=== PATIENT | female | born 1990 | race Hispanic/Latino ===

== ENCOUNTER 2019-11-20 13:15 | Emergency (ER) | payer SELFPAY ==
[~2019-11-20] VITALS: Ht 165.1 cm; Wt 67.1 kg
--- OUTSIDE RECORDS SUMMARY | 2019-11-20 13:17 | XMS REPORT ---
[facility] Address Unknown Phone Unavailable Care Team Providers Care Youtuber Name Role Phone Unavailable Unavailable Payers Payer Name Policy Type Policy Number Effective Date Expiration Date Problems This patient has no known problems. Allergies, Adverse Reactions, Alerts Allergy Name Allergy Type Status Severity Reaction(s) Onset Date Inactive Date Treating Clinician Comments No Known Allergies DA Active U 2017-07-17 00:00:00 Medications This patient has no known medications. Results Test Description Test Time Test Comments Text Results Atomic Results Result Comments URINALYSIS COMPLETE 2019-01-16 20:28:00 UA COLOR (test code=COLU) YELLOW YELLOW UA APPEARANCE (test code=APPU) CLEAR CLEAR UA GLUCOSE DIPSTICK (test code=DGLUU) norm mg/dL NEGATIVE UA BILIRUBIN DIPSTICK (test code=BILU) NEGATIVE mg/dL NEGATIVE UA KETONE DIPSTICK (test code=KETU) neg mg/dL NEGATIVE UA SPECIFIC GRAVITY (test code=SGU) 1.025 1.001-1.035 UA BLOOD DIPSTICK (test code=CHENG) 10 (Trace) Nigel/uL NEGATIVE UA PH DIPSTICK (test code=ROSE) 5.0 5.0-8.0 UA PROTEIN DIPSTICK (test code=PROU) neg mg/dL Neg-15 UA UROBILINIOGEN DIPSTICK (test code=URO) norm mg/dL 0.0-0.2 UA NITRITE DIPSTICK (test code=NATHAN) NEGATIVE NEGATIVE UA LEUKOCYTE ESTERASE DIPSTICK (test code=LEUU) 100/uL (2+) uL NEGATIVE UA WBC (test code=WBCU) 6-10 per HPF 0-5 IN SOME URINARY TRACT INFECTIONS THERE MAY NOT BE ENOUGHWBCs IN THE URINE TO TRIGGER AN AUTOMATIC (REFLEX) URINECULTURE. A SEPERATE ORDER FOR URINE CULTURE IS RECOMMENDEDIF THERE IS STRONG SUPPORT FOR A URINARY TRACT INFECTIONCLINICALLY. UA RBC (test code=RBCU) 0-3 per HPF 0-5 UA EPITHELIAL CELLS (test code=EPIU) Few (2-5/hpf) per HPF Few UA BACTERIA (test code=BACU) FEW per HPF NONE Urine Source? Clean CatchUR HCG [id number] 20:28:00* Test Item Value Reference Range Comments UR HCG QUAL (test code=HCGQLU) NEGATIVE This HCGQL test is NOT applicable for MALE patients.Check with nurse about probable order error.If Tumor Marker Test needed, nurse should order test "HCGTU"(Test #550.96625) Urine Source? Clean Catch
[2019-11-20] MEDS ORDERED: TAMIFLU75 MG PO (14:31)
[2019-11-20 14:42] VITALS: BP 126/66
== END 2019-11-20 14:42 | disposition home or self-care (01) ==
LOC: FSED 13:15
DX: J10.1 Influenza due to other identified influenza virus with other respiratory manifestations (principal); H69.92 Unspecified Eustachian tube disorder, left ear; J45.909 Unspecified asthma, uncomplicated
CPT/HCPCS: 87400; 99283

== ENCOUNTER 2020-09-13 19:52 | Emergency (ER) | payer SELFPAY ==
[~2020-09-13] VITALS: Ht 165.1 cm; Wt 67.1 kg
[~2020-09-13 19:52] MED LIST: TAMIFLU75 MG PO
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
[2020-09-13] MEDS ORDERED: IBUPROFEN 100 MG/5 ML SUSP PO ONE (21:00)
--- NOTE | 2020-09-13 21:33 | Diagnostic Imaging Report ---
X-ray 3 views of the foot. HISTORY: Pain. COMPARISON: None available. FINDINGS: Bones: No acute displaced fracture. Osseous alignment is within normal limits. Joints: The joint spaces are well-maintained. Soft tissues: The soft tissues appear unremarkable. IMPRESSION: No acute radiographic abnormality. Signed by: Pema Victor MD on 09/13/2020 9:30 PM
[2020-09-13] MEDS ORDERED: IBUPROFEN 600 MG TAB ONE (21:42)
--- OUTSIDE RECORDS SUMMARY | 2020-09-13 21:43 | XMS REPORT | Continuity of Care Document ---
Author Author [facility] Organization [facility] Address [address] [place] [address] Phone Unavailable Care Team Providers Care Sign Board Erector Name Role Phone NO, PCP PCP Unavailable Edward RIVAS Attphydanielle Unavailable Payers Payer Name Policy Type Policy Number Effective Date Expiration Date S ource Problems This patient has no known problems. Allergies, Adverse Reactions, Alerts Allergy Name Allergy Type Status Severity Reaction(s) Onset Date Inacti ve Date Treating Clinician Comments Source No Known Allergies DA Active U 2017-07-17 00:00:00 [facility] Medications Ordered Medication Name Filled Medication Name Start Date Stop Da te Current Medication? Ordering Clinician Indication Dosage Frequency Signature (SIG) Comments Components Source Oseltamivir Phosphate (Tamiflu) 75 Mg Cap Oseltamivir Phosphate (Tamiflu) 75 Mg Cap 2019-11-20 00:00:00 Yes Teresita Rivas Md 1 Twice A Day for Flu [facility] Procedures This patient has no known procedures. Encounters Start Date/Time End Date/Time Encounter Type Admission Type [facility] Care Department Encounter ID Source 2019-11-20 13:15:00 2019-11-20 14:42:00 Departed Emergency Room [facility] [id number] [facility] Results Test Description Test Time Test Comments Results Result Comments Source FOOT 3 VIEW RT - HOPD 2020-09-13 21:29:00 [facility] ANTON[facility]TA MARSH : 1990 Sex: F [facility] [address] [address] Patient Name: ANTONIETTA MARSH MR #: [id number] : 1990 Age/Sex: 29/F Req #: [id number] Adm Physician: Ordered by: TERESITA RIVAS MD Report #: [id number] Location: [facility] Room/Bed: Procedure: [id number] HOPD/FOOT 3 VIEW RT - HOPD Exam Date: 09/13/20 Exam Time: 2101 REPORT STATUS: Signed X-ray 3 views of the foot. HISTORY: Pain. COMPARISON: None available. FINDINGS: Bones: No acute displaced fracture. Osseous alignment is within normal limits. Joints: The joint spaces are well-maintained. Soft tissues: The soft tissues appear unremarkable. IMPRESSION: No acute radiographic abnormality. Signed by: Hoda Springer MD on 09/13/2020 9:30 PM Dictated By: HODA SPRINGER MD 29 Transcribed By: VIV on 09/13/202129 COPY TO: TERESITA RIVAS MD URINALYSIS COMPLETE 2019-01-16 20:28:00 Test Item UA COLOR (test code = COLU) YELLOW YELLOW UA APPEARANCE (test code = APPU) CLEAR CLEAR UA GLUCOSE DIPSTICK (test code = DGLUU) norm mg/dL NEGATIVE UA BILIRUBIN DIPSTICK (test code = BILU) NEGATIVE mg/dL NEGATIVE UA KETONE DIPSTICK (test code = KETU) neg mg/dL NEGATIVE UA SPECIFIC GRAVITY (test code = SGU) 1.025 1.001-1.035 UA BLOOD DIPSTICK (test code = CHENG) 10 (Trace) Nigel/uL NEGATIVE A UA PH DIPSTICK (test code = ROSE) 5.0 5.0-8.0 UA PROTEIN DIPSTICK (test code = PROU) neg mg/dL Neg-15 UA UROBILINIOGEN DIPSTICK (test code = URO) norm mg/dL 0.0-0.2 UA NITRITE DIPSTICK (test code = NATHAN) NEGATIVE NEGATIVE UA LEUKOCYTE ESTERASE DIPSTICK (test code = LEUU) 100/uL (2+) uL NE GATIVE A UA WBC (test code = WBCU) 6-10 per HPF 0-5 IN SOME URINARY TRACT INFECTIONS THERE MAY NOT BE ENOUGHWBCs IN THE URINE TO TRIGGER AN AUTOMATIC (REFLEX) URINECULTURE. A SEPERATE ORDER FOR URINE CULTURE IS RECOMMENDEDIF THERE IS STRONG SUPPORT FOR A URINARY TRACT INFECTIONCLINICALLY. UA RBC (test code = RBCU) 0-3 per HPF 0-5 UA EPITHELIAL CELLS (test code = EPIU) Few (2-5/hpf) per HPF Few UA BACTERIA (test code = BACU) FEW per HPF NONE Urine Source? Clean CatchUR HCG [id number] 20:28:00* Test Item Value Reference Range Interpretation Comments UR HCG QUAL (test code = HCGQLU) NEGATIVE This HCGQL test is NOT applicable for MALE patients.Check with nurse about probable order error.If Tumor Marker Test needed, nurse should order test "HCGTU"(Test #550.58111) Urine Source? Clean Catch
[2020-09-13] MEDS ORDERED: IBUPROFEN400 MG PO (22:04)
[2020-09-13] MEDS ORDERED: CYCLOBENZAPRINE10 MG PO (22:08)
[2020-09-13] MEDS ORDERED: TYLENOL # 31 EA PO (22:09)
== END 2020-09-13 22:30 | disposition home or self-care (01) ==
LOC: FSED 20:15
DX: S90.31XA Contusion of right foot, initial encounter (principal); S80.01XA Contusion of right knee, initial encounter; S13.4XXA Sprain of ligaments of cervical spine, initial encounter; V43.52XA Car driver injured in collision with other type car in traffic accident, initial encounter; Y92.488 Other paved roadways as the place of occurrence of the external cause; J45.909 Unspecified asthma, uncomplicated
CPT/HCPCS: 99283

== ENCOUNTER 2021-01-08 15:40 | Emergency (ER) | payer SELFPAY ==
[~2021-01-08] VITALS: Ht 165.1 cm; Wt 67.1 kg
[~2021-01-08 15:40] MED LIST changes: +CYCLOBENZAPRINE10 MG PO; +IBUPROFEN400 MG PO; +TYLENOL # 31 EA PO
[2021-01-08] MEDS ORDERED: ACETAMINOPHEN 325 MG TAB PO ONE (16:15)
[2021-01-08] MEDS ORDERED: DEXAMETHASONE SOD PHOS 10 MG/1 ML VIAL IV ONE (16:15)
[2021-01-08] MEDS ORDERED: DEXAMETHASONE SOD PHOS INJ 4 MG/ML VIAL ONE (16:31)
[2021-01-08] MEDS ORDERED: ACETAMINOPHEN 325 MG TAB ONE (16:31)
[2021-01-08] MEDS ORDERED: CEFTRIAXONE SOD 1 GM VIAL IV ONE (17:00)
[2021-01-08] MEDS ORDERED: ACETAMINOPHEN500 MG PO (17:01)
[2021-01-08] MEDS ORDERED: DECADRON4 M1 PO (17:01)
[2021-01-08] MEDS ORDERED: CEFDINIR300 MG PO (17:01)
[2021-01-08] MEDS ORDERED: CEFTRIAXONE SOD 1 GM VIAL ONE (17:14)
[2021-01-08] MEDS ORDERED: CEFTRIAXONE SOD 1 GM in SODIUM CHLORIDE 0.9% 50ML 50 ML IV ONE (17:15)
== END 2021-01-08 17:32 | disposition home or self-care (01) ==
LOC: FSED 16:19
DX: U07.1 COVID-19 (principal); R07.9 Chest pain, unspecified; N39.0 Urinary tract infection, site not specified; F41.9 Anxiety disorder, unspecified; Z71.89 Other specified counseling; R94.31 Abnormal electrocardiogram [ECG] [EKG]; J45.909 Unspecified asthma, uncomplicated
CPT/HCPCS: 99284; J0696; J1100; 93005